=== PATIENT | female | born 1975 | race Caucasian/White ===

== ENCOUNTER 2017-07-08 12:33 | Outpatient (CLI) | payer OTHER ==
--- NOTE | 2017-07-08 15:06 | MRI Report ---
EXAM MRA BRAIN EXAM DATE: 07/08/2017 01:10 PM. CLINICAL HISTORY: 42-year-old with paternal family history of brain aneurysms presenting with headach e. Evaluate for intracranial vascular pathology. COMPARISON: None. TECHNIQUE: Multiplanar, multisequence MRA sequences of the brain were performed. Other: None. Post-pr ocessing: Multiplanar 3D MIP reconstructions. IV Contrast: None. FINDINGS: RIGHT Internal Carotid (ICA): No aneurysm, stenosis or anomaly. Middle Cerebral (MCA): No aneurysm, stenosis or anomaly. Anterior Cerebral (LUPIS): No aneurysm, stenosis or anomaly. Posterior Cerebral (TRAUMA PROGRAM MANAGER): No aneurysm, stenosis or anomaly. Posterior Communicating (P-COM): Not definitively seen. No aneurysm. Vertebral: No aneurysm, stenosis or anomaly in the visualized upper vertebral artery. LEFT Internal Carotid (ICA): No aneurysm, stenosis or anomaly. Middle Cerebral (MCA): No aneurysm, stenosis or anomaly. Anterior Cerebral (LUPIS): No aneurysm, stenosis or anomaly. Posterior Cerebral (TRAUMA PROGRAM MANAGER): No aneurysm, stenosis or anomaly. Posterior Communicating (P-COM): Not definitively seen. No aneurysm. Vertebral: No aneurysm, stenosis or anomaly in the visualized upper vertebral artery. MIDLINE Anterior Communicating (A-COM): No aneurysm, stenosis or anomaly. Basilar Artery:No aneurysm, stenosis or anomaly. Other: None. IMPRESSION: 1. No large vessel occlusion. 2. No intracranial aneurysm, significant stenosis, or vascular anomaly seen. [facility] Referring Provider Line: [phone] SITE ID: [id number]
== END 2017-07-08 12:34 | disposition home or self-care (01) ==
LOC: DI 12:33
PROVIDERS: ATTEND Registered Nurse Diabetes Educator
DX: Z84.89 Family history of other specified conditions (principal)
CPT/HCPCS: 70544